=== PATIENT | male | born 1955 | race Caucasian/White ===

== ENCOUNTER 2019-06-05 20:19 | Emergency (ER) | payer OTHER ==
[~2019-06-05] VITALS: Ht 177.8 cm; Wt 100.2 kg
[2019-06-05 20:32] VITALS: Ht 177.8 cm; Wt 100.2 kg
[2019-06-05 22:50] VITALS: BP 145/87
== END 2019-06-05 22:50 | disposition home or self-care (01) ==
LOC: ED 20:19
DX: S80.12XA Contusion of left lower leg, initial encounter (principal); Z98.890 Other specified postprocedural states; W54.8XXA Other contact with dog, initial encounter; Y93.02 Activity, running; Y92.89 Other specified places as the place of occurrence of the external cause; Y99.8 Other external cause status
CPT/HCPCS: J1885

== ENCOUNTER 2020-04-02 20:19 | Emergency (ER) | payer OTHER ==
[~2020-04-02] VITALS: Ht 177.8 cm; Wt 98.9 kg
[2020-04-02 20:26] VITALS: Ht 177.8 cm; Wt 98.9 kg
[2020-04-02 22:31] VITALS: BP 153/80
== END 2020-04-02 22:30 | disposition home or self-care (01) ==
LOC: ED 20:19
DX: S46.912A Strain of unspecified muscle, fascia and tendon at shoulder and upper arm level, left arm, initial encounter (principal); W10.9XXA Fall (on) (from) unspecified stairs and steps, initial encounter; Y93.89 Activity, other specified; Y92.89 Other specified places as the place of occurrence of the external cause; Y99.8 Other external cause status
CPT/HCPCS: Q0092